=== PATIENT | female | born 1990 | race Caucasian/White ===

== ENCOUNTER 2019-04-03 09:50 | Day surgery (SDC) | payer OTHER ==
[2019-03-29 14:42] LABS: Absolute Lymphocytes (CBC) 2.2 K/uL (0.7-4.9); Absolute Monocytes 0.6 K/uL (0.1-1.3); Absolute Neutrophil 4.2 K/uL (1.8-8.0); Basophils % 0.8 % (0-1.3); Eosinophils % 1.2 % (0-4.4); Hematocrit 44.2 % (36.0-45.0); Lymphocytes % 30.2 % (15.3-44.8); MPV 8.9 fL (7.6-11.3); Monocytes % 8.7 % (3.3-12.3); RBC Red Blood Cell Count 4.88 M/uL (3.86-4.86)
[2019-04-03] MEDS ORDERED: Ringers Lactate 1,000 ML IV ONE (10:28)
[2019-04-03] MEDS ORDERED: CEFOXITIN/SWI 1gm 0 GM/0 ML SYR ONE (10:28)
[2019-04-03] MEDS: BUPIVACAINE 0.5% PF 10 ML VIAL ONE ×2 (10:28→11:32)
[2019-04-03] MEDS ORDERED: CEFOXITIN/SWI 1gm 1 GM/10 ML SYR ONE (10:35)
[2019-04-03] MEDS ORDERED: FENTANYL CITR 100 MCG/2 ML ONE ×2 (10:46→11:53)
[2019-04-03] MEDS ORDERED: PROPOFOL 200 MG/20 ML VIAL IV ONE (10:47)
[2019-04-03] MEDS ORDERED: ONDANSETRON 4 MG/2 ML VIAL ONE (10:48)
[2019-04-03] MEDS ORDERED: MIDAZOLAM HCL 2 MG/2 ML INJ ONE (10:48)
[2019-04-03] MEDS ORDERED: LIDOCAINE 2% MPF 5 ML VIAL ONE (10:48)
[2019-04-03] MEDS ORDERED: ROCURONIUM 50 MG/5 ML VIAL IV ONE (10:49)
[2019-04-03] MEDS ORDERED: DEXAMETHASONE 10 MG/ML VIAL ONE (11:41)
[2019-04-03] MEDS ORDERED: NEOSTIGMINE 1 MG/ML -10 ML VIAL ONE (12:02)
[2019-04-03] MEDS ORDERED: GLYCOPYRROLATE 0.2 MG/ML SYR ONE (12:02)
[2019-04-03] MEDS ORDERED: KETOROLAC 30 MG/ML INJ ONE (12:03)
[2019-04-03] MEDS: HYDROMORPHONE HCL 1 MG/ML INJ ONE ×6 (12:12→12:42)
[2019-04-03] MEDS ORDERED: PROMETHAZINE 25 MG/ML VIAL ONE (13:17)
[2019-04-03] MEDS ORDERED: HYDROCODONE/APAP 7.5/325 MG TAB ONE (13:54)
--- NOTE | 2019-04-03 21:01 | OP ---
Date of Procedure: 04/03/2019 Surgeon: Jacques Power MD Bracelet Form Coverer: LIMA Silveira. Preoperative Diagnoses: Chronic cholecystitis and biliary dyskinesia. Postoperative Diagnoses: Chronic cholecystitis and biliary dyskinesia. Procedure: Laparoscopic cholecystectomy. Estimated Blood Loss: Minimal. Findings: Chronic cholecystitis. Anesthesia: General. Complications: None. Disposition: The patient tolerated the procedure in stable condition and taken to Recovery in good g eneral condition. Procedure In Detail: The patient was brought to the OR and placed in supine position. General anest hesia was begun. The patient was prepped and draped in usual sterile fashion. Marcaine 0.5% was inf iltrated locally. A 15-blade was used to make a 1-cm infraumbilical midline incision. Subcutaneous tissue was divided. Fascia was identified and divided. A #1 Vicryl stay suture was placed. Periton eal cavity was entered with blunt dissection. A 12 mm trocar was placed into the peritoneal cavity u nder direct vision. Pneumoperitoneum was established, and then three 5 mm trocars placed, 1 in the e pigastrium just to the right of midline, and 2 in the right subcostal region. Laparoscopy revealed c hronic inflammation of the gallbladder. Fundus retracted superiorly. Infundibulum was identified an d retracted inferolaterally. Cystic duct and cystic artery were clearly identified with blunt dissec tion. Clips placed. Both structures divided. Cautery was used to remove the gallbladder from the l iver bed. Bleeding on the liver bed was controlled with cautery. The gallbladder was retrieved thro ugh the umbilicus via an EndoCatch bag. The right upper quadrant was irrigated. Effluent was clear. No evidence of bleeding or bile leakage appreciated. Subsequently, all trocars were removed under direct vision. Stay sutures were tied to each other to approximate the fascial defect. Subcutaneous wounds irrigated. Bleeding controlled with cautery. A 3-0 chromic used to reapproximate subcutaneo us tissue and close the skin. Sterile dressing was applied. The patient was awakened and taken to R ecovery in good general condition. /MODL Voice ID: [id number] Report ID: [id number]
--- NOTE | 2019-04-03 21:01 | DS ---
Date of Discharge: 04/03/2019 The patient will go to Day Surgery and home when stable. Disposition: Home. Condition: Stable. Discharge Instructions: Resume home medications and diet. Activity as tolerated. No heavy lifting. Remove outer dressing in 2 days. Shower, keep wound clean and dry. Keep Steri-Strips on at all ti mes. Follow up in my office in 1 week. Call for appointment. Tylenol No. 3 one tablet p.o. q.4 p.r .n. pain. /MODL Voice ID: [id number] Report ID: [id number]
== END 2019-04-03 14:44 | disposition home or self-care (01) ==
LOC: OR 09:50
PROVIDERS: ATTEND Surgery
PROC: 0FT44ZZ Resection of Gallbladder, Percutaneous Endoscopic Approach (ICD-10-PCS; principal; 2019-04-03 12:00)
DX: K81.1 Chronic cholecystitis (principal)
CPT/HCPCS: 36415; 81025; 85025; 88304; J1100; J1170; J2250; J2405; J2550; J2704; J2710; J3010

== ENCOUNTER 2020-12-15 14:28 | Emergency (ER) | payer OTHER ==
[2020-12-15] MEDS ORDERED: MORPHINE 4 MG/ML SYR ONE (17:50)
[2020-12-15] MEDS ORDERED: ONDANSETRON 4 MG/2 ML VIAL ONE (17:50)
[2020-12-15] MEDS ORDERED: NA CHLORIDE 0.9% 1,000 ML ONE ×2 (17:51→19:05)
[2020-12-15 18:02] LABS: Absolute Lymphocytes (CBC) 1.5 K/uL (0.7-4.9); Basophils % 0.4 % (0-1.3); Hematocrit 45.6 % (36.0-45.0); Lymphocytes % 10.4 % (15.3-44.8); MPV 8.8 fL (7.6-11.3); RBC Red Blood Cell Count 4.33 M/uL (3.86-4.86)
[2020-12-15 18:16] LABS: Albumin 4.2 g/dL (3.4-5.0); Bilirubin Direct 0.4 mg/dL (0-0.2); Bilirubin Total 1.3 mg/dL (0.2-1.0); Potassium 3.1 mmol/L (3.5-5.1); Protein, Total 8.2 g/dL (6.4-8.2)
[2020-12-15 18:34] LABS: Urine Blood NEGATIVE (NEG); Urine Glucose NEGATIVE (NEG); Urine Protein 2+ (NEG); Urine Specific Gravity >1.030 (1.005-1.030); Urine pH 5.5 (5.0-7.0)
[2020-12-15] MEDS ORDERED: POTASSIUM 25 MEQ EFFERV TAB ONE (19:24)
--- NOTE | 2020-12-15 19:30 | RAD REPORT ---
EXAM DESCRIPTION: CT - Abdomen Pelvis W Contrast - 12/15/2020 7:01 pm CLINICAL HISTORY: ABD PAIN COMPARISON: No comparisons TECHNIQUE: Biphasic, helical CT imaging of the abdomen and pelvis was performed following 100 ml non -ionic IV contrast. Oral contrast was given. All CT scans are performed using dose optimization technique as appropriate and may include automated exposure control or mA/KV adjustment according to patient size. FINDINGS: No suspicious findings in the lung bases. The liver, spleen, and pancreas show no suspicious focal findings. Liver attenuation shows mild fatty infiltration. Cholecystectomy clips are present with no biliary tree dilatation. Symmetric renal function is seen with no hydronephrosis or suspicious renal mass. No pyelonephritis o r acute parenchymal process. No bladder abnormalities. No adrenal abnormalities. Uterus and ovaries s how no suspicious findings. No dilated bowel loops or bowel wall thickening. Appendix is normal. No active GI process identifiabl e. No free air, free fluid or inflammatory stranding. No hernia, mass or bulky lymphadenopathy. No suspicious bony findings. IMPRESSION: Contrast enhanced CT abdomen and pelvis showing no acute or emergent finding.
[2020-12-15 20:34] LABS: White Blood Cell Scan OK (OK)
[2020-12-15 20:35] LABS: Blood Morphology Comment NOTED (NOT SEEN); Macrocytosis 1+; Platelet Estimate ADEQ
[2020-12-15 20:56] LABS: SARS-COV-2 RT PCR NEGATIVE (NEGATIVE)
--- NOTE | 2020-12-15 20:57 | EDPHYS ---
Physician Documentation [facility] – [place], [place] Name: Isa Verdin Age: 30 yrs Sex: Female : 1990 Arrival Date: 12/15/2020 Time: 14:32 Bed 19 Private MD: ED Physician Christos Rodriguez HPI: 12/15 18:08 This 30 yrs old Female presents to ER via Ambulatory with complaints of pm1 Crohns flare up. 18:08 The patient presents with abdominal pain right lower quadrant. Onset: The pm1 symptoms/episode began/occurred 3 day(s) ago. The symptoms do not radiate. Associated signs and symptoms: Pertinent positives: nausea, vomiting, and diarrhea. The symptoms are described as crampy. Modifying factors: The symptoms are alleviated by nothing, the symptoms are aggravated by nothing. Severity of pain: in the emergency department the pain is actually worse. The patient has experienced similar episodes in the past, multiple times, and the symptoms today are exactly the same, to previous Crohn's flare up. The patient has not recently seen a physician. Historical: - Allergies: 14:42 No Known Allergies; tw2 - Home Meds: 14:42 Pentasa 500 mg Oral cpER 2 caps 4 times per day [Active]; omeprazole 40 mg Oral cpDR 1 tw2 cap once daily [Active]; colestipol 1 gram oral tab 1 tab 2 times per day [Active]; promethazine 25 mg Oral tab 1 tab once daily [Active]; - PMHx: 14:42 Crohn's; tw2 - PSHx: 14:42 Cholecystectomy; tw2 - Immunization history:: Adult Immunizations. - Social history:: Smoking status: Patient denies any tobacco usage or history of. Patient uses street drugs, marijuana, "last night because the pain was so bad". ROS: 18:08 Constitutional: Negative for fever, chills, and weight loss, Neck: Negative for injury, pm1 pain, and swelling, Cardiovascular: Negative for chest pain, palpitations, and edema, Respiratory: Negative for shortness of breath, cough, wheezing, and pleuritic chest pain. 18:08 Back: Negative for injury and pain, : Negative for injury, bleeding, discharge, and swelling, MS/Extremity: Negative for injury and deformity, Skin: Negative for injury, rash, and discoloration, Neuro: Negative for headache, weakness, numbness, tingling, and seizure. 18:08 Abdomen/GI: Positive for abdominal pain, nausea, vomiting, and diarrhea, Negative for constipation. Exam: 18:08 Constitutional: This is a well developed, well nourished patient who is awake, alert, pm1 and in no acute distress. Head/Face: Normocephalic, atraumatic. 18:08 Back: No spinal tenderness. No costovertebral tenderness. Full range of motion. Skin: Warm, dry with normal turgor. Normal color with no rashes, no lesions, and no evidence of cellulitis. MS/ Extremity: Pulses equal, no cyanosis. Neurovascular intact. Full, normal range of motion. 18:08 Cardiovascular: Rate: tachycardic, actual rate is 109 bpm, Rhythm: regular, Pulses: no pulse deficits are appreciated, Edema: is not appreciated. 18:08 Abdomen/GI: Inspection: obese Palpation: soft, in all quadrants, mild abdominal tenderness, in the right lower quadrant. 18:08 Neuro: Exam negative for acute changes, Orientation: is normal, Mentation: is normal, Motor: is normal, moves all fours. Vital Signs: 14:38 BP 148 / 95; Pulse 144; Resp 19; Temp 98.3(TE); Pulse Ox 99% on R/A; Weight 65.77 kg tw2 (R); Height 4 ft. 11 in. (149.86 cm); Pain 7/10; 14:53 Pulse 126; tw2 17:29 BP 140 / 97; Pulse 103; Resp 18; Pulse Ox 99% on R/A; vg1 18:00 BP 116 / 59; Pulse 67; Resp 16; Pulse Ox 100% on R/A; vg1 19:00 BP 136 / 86; Pulse 108; Resp 16; Pulse Ox 100% on R/A; vg1 20:00 BP 122 / 80; Pulse 90; Resp 16; Pulse Ox 98% on R/A; vg1 14:38 Body Mass Index 29.29 (65.77 kg, 149.86 cm) tw2 MDM: 17:37 Patient medically screened. pm1 19:34 Data reviewed: vital signs. pm1 20:56 Counseling: I had a detailed discussion with the patient and/or guardian regarding: the pm1 historical points, exam findings, and any diagnostic results supporting the discharge/admit diagnosis, lab results, radiology results, the need for outpatient follow up, to return to the emergency department if symptoms worsen or persist or if there are any questions or concerns that arise at home. 12/15 17:22 Order name: Basic Metabolic Panel; Complete Time: 18:21 pm1 12/15 17:22 Order name: CBC with Diff; Complete Time: 20:47 pm1 12/15 17:22 Order name: Hepatic Function; Complete Time: 18:21 pm1 12/15 17:22 Order name: Lipase; Complete Time: 18:21 pm1 12/15 18:07 Order name: Urine Dipstick--Ancillary (enter results); Complete Time: 18:38 bd 12/15 18:07 Order name: Urine --Ancillary (enter results); Complete Time: 18:38 bd 12/15 17:38 Order name: CT Abd/Pelvis - IV Contrast Only; Complete Time: 19:34 pm1 12/15 20:33 Order name: CBC Smear Scan; Complete Time: 20:47 EDMS 12/15 20:56 Order name: COVID-19/FLU A+B; Complete Time: 21:02 EDMS 12/15 17:22 Order name: IV Saline Lock; Complete Time: 17:54 pm1 12/15 17:22 Order name: Labs collected and sent; Complete Time: 17:54 pm1 12/15 17:38 Order name: Urine Dipstick-Ancillary (obtain specimen); Complete Time: 18:00 pm1 12/15 17:38 Order name: Urine Test (obtain specimen); Complete Time: 17:59 pm1 Administered Medications: 17:53 Drug: Zofran (Ondansetron) 4 mg Route: IVP; Site: left antecubital; vg1 18:55 Follow up: Response: Nausea is decreased vg1 17:53 Drug: NS 0.9% 1000 ml Route: IV; Rate: 1000 ml; Site: left antecubital; vg1 18:47 Follow up: IV Status: Completed infusion; IV Intake: 1000ml vg1 17:54 Drug: morphine 4 mg {Note: rass0.} Route: IVP; Site: left antecubital; vg1 18:54 Follow up: Response: No adverse reaction; Pain is decreased vg1 18:54 Drug: NS 0.9% 1000 ml Route: IV; Rate: 1000 ml; Site: left antecubital; vg1 20:41 Follow up: IV Status: Completed infusion; IV Intake: 1000ml vg1 19:16 Drug: Potassium Effervescent Tablet 50 mEq Route: PO; vg1 20:41 Follow up: Response: No adverse reaction vg1 Disposition: 12/15/20 20:56 Discharged to Home. Impression: Unspecified abdominal pain, Vomiting, Diarrhea, unspecified. - Condition is Stable. - Discharge Instructions: Abdominal Pain, Adult, Crohn Disease, Diarrhea, Adult, Nausea and Vomiting, Adult. - Prescriptions for Zofran ODT 4 mg Oral tablet,disintegrating - place 1 tablet by TRANSLINGUAL route every 8 hours As needed; 12 tablet. Bentyl 20 mg Oral Tablet - take 1 tablet by ORAL route every 6 hours As needed; 20 tablet. Tylenol- Codeine #3 300-30 mg Oral Tablet - take 2 tablets by ORAL route every 6 hours As needed; 20 tablet. - Medication Reconciliation Form, Thank You Letter, Antibiotic Education, Prescription Opioid Use form. - Follow up: Emergency Department; When: As needed; Reason: Worsening of condition. Follow up: Private Physician; When: 2 - 3 days; Reason: Recheck today's complaints, Continuance of care, Re-evaluation by your physician. - Problem is new. - Symptoms have improved. Addendum: 12/17/2020 23:11 Co-signature as Attending Physician, Christos Rodriguez MD. r n Signatures: Dispatcher [employer] EDGA Christos Rodriguez MD MD rn Marinas, Patrick, CONRADO STONE DRESSER pm1 Aleksandra Hooper RN RN tw2 Renee Wills RN RN vg1 Corrections: (The following items were deleted from the chart) 12/15 19:54 19:39 Influenza Screen (A \\T\\ B)+BA.LAB.BRZ ordered. EDMS EDMS 19:58 19:39 CORONAVIRUS+MR.LAB.BRZ ordered. EDGA EDMS 21:00 20:56 12/15/2020 20:56 Discharged to Home. Impression: Unspecified abdominal pain. pm1 Condition is Stable. Forms are Medication Reconciliation Form, Thank You Letter, Antibiotic Education, Prescription Opioid Use. Follow up: Emergency Department; When: As needed; Reason: Worsening of condition. Follow up: Private Physician; When: 2 - 3 days; Reason: Recheck today's complaints, Continuance of care, Re-evaluation by your physician. Problem is new. Symptoms have improved. pm1 21:14 21:00 12/15/2020 20:56 Discharged to Home. Impression: Unspecified abdominal pain; vg1 Vomiting; Diarrhea, unspecified. Condition is Stable. Discharge Instructions: Abdominal Pain, Adult, Crohn Disease, Diarrhea, Adult, Nausea and Vomiting, Adult. Prescriptions for Zofran ODT 4 mg Oral tablet,disintegrating - place 1 tablet by TRANSLINGUAL route every 8 hours As needed; 12 tablet, Bentyl 20 mg Oral Tablet - take 1 tablet by ORAL route every 6 hours As needed; 20 tablet, Tylenol-Codeine #3 300-30 mg Oral Tablet - take 2 tablets by ORAL route every 6 hours As needed; 20 tablet. and Forms are Medication Reconciliation Form, Thank You Letter, Antibiotic Education, Prescription Opioid Use. Follow up: Emergency Department; When: As needed; Reason: Worsening of condition. Follow up: Private Physician; When: 2 - 3 days; Reason: Recheck today's complaints, Continuance of care, Re-evaluation by your physician. Problem is new. Symptoms have improved. pm1
--- NOTE | 2020-12-15 20:57 | ER ---
Nurse's Notes [facility] Name: Isa Verdin Age: 30 yrs Sex: Female : 1990 Arrival Date: 12/15/2020 Time: 14:32 Bed 19 Private MD: Diagnosis: Unspecified abdominal pain;Vomiting;Diarrhea, unspecified Presentation: 12/15 14:38 Chief complaint: Patient states: i am having severe cramping in my stomach, i know i tw2 have crohns and this last week it has been pretty bad, i have been cramping really severe and vomiting, i have vomited like 12 times today, mostly bile, i cant keep anything down,+n/v/d. Coronavirus screen: diarrhea, nausea, vomiting. Client presents with at least one sign or symptom that may indicate coronavirus-19. Standard/surgical mask placed on the client. Provider contacted for isolation considerations. Ebola Screen: Patient denies travel to an Ebola-affected area in the 21 days before illness onset. Initial Sepsis Screen: Does the patient meet any 2 criteria? HR > 90 bpm. Does the patient have a suspected source of infection? No. Patient's initial sepsis screen is negative. Risk Assessment: Do you want to hurt yourself or someone else? Patient reports no desire to harm self or others. Onset of symptoms was December 15, 2020. 14:38 Method Of Arrival: Ambulatory tw2 14:38 Acuity: SHARON 2 tw2 Triage Assessment: 14:42 General: Appears in no apparent distress. uncomfortable, Behavior is anxious. Pain: tw2 Complains of pain in abdomen. GI: Reports lower abdominal pain, upper abdominal pain, diarrhea, nausea, vomiting. Historical: - Allergies: 14:42 No Known Allergies; tw2 - Home Meds: 14:42 Pentasa 500 mg Oral cpER 2 caps 4 times per day [Active]; omeprazole 40 mg Oral cpDR 1 tw2 cap once daily [Active]; colestipol 1 gram oral tab 1 tab 2 times per day [Active]; promethazine 25 mg Oral tab 1 tab once daily [Active]; - PMHx: 14:42 Crohn's; tw2 - PSHx: 14:42 Cholecystectomy; tw2 - Immunization history:: Adult Immunizations. - Social history:: Smoking status: Patient denies any tobacco usage or history of. Patient uses street drugs, marijuana, "last night because the pain was so bad". Screenin:22 Abuse screen: Denies threats or abuse. Nutritional screening: No deficits noted. tw2 Tuberculosis screening: No symptoms or risk factors identified. Fall Risk None identified. Assessment: 17:20 General: Appears comfortable, uncomfortable, Behavior is calm, cooperative. Pain: vg1 Complains of pain in right upper quadrant and right lower quadrant Pain currently is 7 out of 10 on a pain scale. Quality of pain is described as crampy, Alleviated by nothing. Noted to be guarding. Neuro: Level of Consciousness is awake, alert, obeys commands, Oriented to person, place, time, situation. Cardiovascular: Patient's skin is warm and dry. Respiratory: Airway is patent Respiratory effort is even, unlabored, Respiratory pattern is regular, symmetrical. GI: Bowel sounds present X 4 quads. Abd is soft X 4 quads Abdomen is tender to palpation in right upper quadrant and right lower quadrant Reports diarrhea, nausea, vomiting. : No signs and/or symptoms were reported regarding the genitourinary system. EENT: No signs and/or symptoms were reported regarding the EENT system. Derm: Skin is intact, is healthy with good turgor. Musculoskeletal: Circulation, motion, and sensation intact. 18:55 Reassessment: Patient appears in no apparent distress at this time. Patient and/or vg1 family updated on plan of care and expected duration. Pain level reassessed. Patient is alert, oriented x 3, equal unlabored respirations, skin warm/dry/pink. Rated pain 3/10. Patient states feeling better. 19:05 Reassessment: Received VO from [facility] to administer Potassium tablet 50 mEq PO x1. vg1 20:43 Reassessment: Patient appears in no apparent distress at this time. Patient and/or vg1 family updated on plan of care and expected duration. Pain level reassessed. Patient is alert, oriented x 3, equal unlabored respirations, skin warm/dry/pink. Patient states feeling better. Vital Signs: 14:38 BP 148 / 95; Pulse 144; Resp 19; Temp 98.3(TE); Pulse Ox 99% on R/A; Weight 65.77 kg tw2 (R); Height 4 ft. 11 in. (149.86 cm); Pain 7/10; 14:53 Pulse 126; tw2 17:29 BP 140 / 97; Pulse 103; Resp 18; Pulse Ox 99% on R/A; vg1 18:00 BP 116 / 59; Pulse 67; Resp 16; Pulse Ox 100% on R/A; vg1 19:00 BP 136 / 86; Pulse 108; Resp 16; Pulse Ox 100% on R/A; vg1 20:00 BP 122 / 80; Pulse 90; Resp 16; Pulse Ox 98% on R/A; vg1 14:38 Body Mass Index 29.29 (65.77 kg, 149.86 cm) tw2 ED Course: 14:32 Patient arrived in ED. mr 14:40 Triage completed. tw2 14:43 Arm band placed on. tw2 17:15 Bed in low position. Call light in reach. Pulse ox on. NIBP on. tw2 17:17 Renee Wills, RN is Primary Nurse. vg1 17:21 Bar Arreaga NP is PHCP. pm1 17:21 Christos Rodriguez MD is Attending Physician. pm1 17:45 Inserted saline lock: 20 gauge in left antecubital area, using aseptic technique. Blood vg1 collected. 17:45 Initial lab(s) drawn, by ri, sent to lab. vg1 18:00 Urine collected: clean catch specimen, clear, jennifer colored. vg1 18:[address] via stretcher. vg1 19:07 CT Abd/Pelvis - IV Contrast Only In Process Unspecified. EDMS 19:45 COVID swab sent to lab. vg1 21:13 No provider procedures requiring assistance completed. IV discontinued, intact, vg1 bleeding controlled, No redness/swelling at site. Pressure dressing applied. Administered Medications: 17:53 Drug: Zofran (Ondansetron) 4 mg Route: IVP; Site: left antecubital; vg1 18:55 Follow up: Response: Nausea is decreased vg1 17:53 Drug: NS 0.9% 1000 ml Route: IV; Rate: 1000 ml; Site: left antecubital; vg1 18:47 Follow up: IV Status: Completed infusion; IV Intake: 1000ml vg1 17:54 Drug: morphine 4 mg {Note: rass0.} Route: IVP; Site: left antecubital; vg1 18:54 Follow up: Response: No adverse reaction; Pain is decreased vg1 18:54 Drug: NS 0.9% 1000 ml Route: IV; Rate: 1000 ml; Site: left antecubital; vg1 20:41 Follow up: IV Status: Completed infusion; IV Intake: 1000ml vg1 19:16 Drug: Potassium Effervescent Tablet 50 mEq Route: PO; vg1 20:41 Follow up: Response: No adverse reaction vg1 Intake: 18:47 IV: 1000ml; Total: 1000ml. vg1 20:41 IV: 1000ml; Total: 2000ml. vg1 Outcome: 20:56 Discharge ordered by . pm1 21:13 Discharged to home ambulatory. vg1 21:13 Condition: stable 21:13 Discharge instructions given to patient, Instructed on discharge instructions, follow up and referral plans. medication usage, Demonstrated understanding of instructions, follow-up care, medications, Prescriptions given X 3. 21:14 Patient left the ED. vg1 Signatures: Dispatcher [employer] Kerrie Patterson Patrick, CONRAD[employer] SUPERVISOR CEREAL pm1 Aleksandra Hooper RN RN tw2 Renee Wills RN RN vg1
[2020-12-15 21:18] VITALS: TEMP 98.3
[2020-12-15 21:28] VITALS: BP 122/80; O2SAT 98
== END 2020-12-15 21:14 | disposition home or self-care (01) ==
LOC: ER 14:28
DX: R19.7 Diarrhea, unspecified (principal); R10.31 Right lower quadrant pain; R11.2 Nausea with vomiting, unspecified; K50.90 Crohn's disease, unspecified, without complications; Z20.822 Contact with and (suspected) exposure to COVID-19
CPT/HCPCS: 96361; 85025; 80048; 36415; 81025; 80076; 81003; 83690; 0240U; 74177; 96375; 96374; 99284; Q9967; J7030 ×2; J2405

== ENCOUNTER 2022-01-20 09:07 | Emergency (ER) | payer OTHER ==
[2022-01-20] MEDS ORDERED: hydrOXYzine HCL 25 MG TAB ONE (09:50)
[2022-01-20] MEDS ORDERED: NA CHLORIDE 0.9% 1,000 ML ONE (09:50)
[2022-01-20 09:51] LABS: Absolute Lymphocytes (CBC) 0.9 K/uL (0.7-4.9); Hematocrit 39.9 % (36.0-45.0); MPV 8.2 fL (7.6-11.3); RBC Red Blood Cell Count 3.88 M/uL (3.86-4.86)
--- NOTE | 2022-01-20 10:00 | RAD REPORT ---
EXAM DESCRIPTION: RAD - Chest Single View - 01/20/2022 9:51 am CLINICAL HISTORY: PALPITATIONS COMPARISON: No comparisons FINDINGS: Lines: None. Lungs: No evidence of edema or pneumonia. Pleural: No significant pleural effusions or pneumothorax. Cardiac: The heart size is within normal limits. Bones: No acute fractures. Other: IMPRESSION: No acute cardiopulmonary disease.
[2022-01-20 10:19] LABS: ALT/SGPT 20 U/L (12-78); AST/SGOT 53 U/L (15-37); Albumin 3.7 g/dL (3.4-5.0); Alkaline Phosphatase 111 U/L (45-117); BUN Blood Urea Nitrogen 7 mg/dL (7-18); Bicarbonate 29 mmol/L (21-32); Bilirubin Direct 0.4 mg/dL (0-0.2); Bilirubin Total 1.4 mg/dL (0.2-1.0); Glucose Level 140 mg/dL (74-106); Protein, Total 7.4 g/dL (6.4-8.2); Sodium Level 135 mmol/L (136-145)
[2022-01-20 10:20] LABS: Magnesium 1.3 mg/dL (1.8-2.4); Potassium 2.8 mmol/L (3.5-5.1)
[2022-01-20] MEDS ORDERED: POTASSIUM 25 MEQ EFFERV TAB ONE (10:33)
[2022-01-20] MEDS ORDERED: MAGNESIUM SULFATE 1 gm IVPB 1 GM/100 ML BAG IV ONE (10:33)
[2022-01-20] MEDS ORDERED: KCL 20 MEQ/100 mL IVPB 100 ML IV ONE (10:33)
[2022-01-20] MEDS ORDERED: NA CHLORIDE 0.9% 250 ML ONE (10:33)
[2022-01-20] MEDS ORDERED: ONDANSETRON 4 MG/2 ML VIAL ONE (10:46)
[2022-01-20] MEDS ORDERED: DIAZEPAM 5 MG TABLET ONE (10:46)
[2022-01-20 12:25] LABS: SARS-COV-2 RT PCR NEGATIVE (NEGATIVE)
--- NOTE | 2022-01-20 13:12 | EDPHYS ---
Physician Documentation [facility] Name: Isa Verdin Age: 31 yrs Sex: Female : 1990 Arrival Date: 01/20/2022 Time: 09:09 Bed 6 Private MD: ED Physician Usha Akers HPI: 01/20 09:36 This 31 yrs old Female presents to ER via Ambulatory with complaints of Allergic pm1 Reaction, To meds. 09:36 The patient presents with chest pain, palpitations. Onset: The symptoms/episode pm1 began/occurred this morning. Associated signs and symptoms: Pertinent negatives: fever, shortness of breath, vomiting, diarrhea. Possible causes: new medication for anxiety, venlafaxine . At home the patient or guardian has treated the symptoms with nothing. Severity of symptoms: in the emergency department the symptoms are unchanged. The patient has experienced similar episodes in the past, a few times, with other antidepressants/anti-anxiety. 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 - Social history:: Smoking status: Patient denies any tobacco usage or history of. ROS: 09:36 Constitutional: Negative for fever, chills, and weight loss, Eyes: Negative for injury, pm1 pain, redness, and discharge, ENT: Negative for injury, pain, and discharge, Neck: Negative for injury, pain, and swelling. 09:36 Respiratory: Negative for shortness of breath, cough, wheezing, and pleuritic chest pain, Abdomen/GI: Negative for abdominal pain, nausea, vomiting, diarrhea, and constipation, Back: Negative for injury and pain, MS/Extremity: Negative for injury and deformity, Skin: Negative for injury, rash, and discoloration, Neuro: Negative for headache, weakness, numbness, tingling, and seizure. 09:36 Cardiovascular: Positive for chest pain, palpitations, Negative for edema. 09:36 Psych: Positive for anxiety, Negative for depression. 09:36 All other systems are negative. Exam: 09:36 Constitutional: This is a well developed, well nourished patient who is awake, alert, pm1 and in no acute distress. 09:36 Head/Face: Normocephalic, atraumatic. 09:36 Back: No spinal tenderness. No costovertebral tenderness. Full range of motion. Skin: Warm, dry with normal turgor. Normal color with no rashes, no lesions, and no evidence of cellulitis. MS/ Extremity: Pulses equal, no cyanosis. Neurovascular intact. Full, normal range of motion. 09:36 Cardiovascular: Exam negative for acute changes, Rate: tachycardic, Rhythm: regular, Pulses: no pulse deficits are appreciated, Heart sounds: normal, normal S1and S2, Edema: is not appreciated. 09:36 Respiratory: Exam negative for acute changes, respiratory distress, shortness of breath, Breath sounds: are clear throughout. 09:36 Neuro: Exam negative for acute changes, Orientation: is normal, Mentation: is normal, Motor: is normal, moves all fours. Vital Signs: 09:14 BP 149 / 107; Pulse 105; Resp 20 S; Temp 98.6(TE); Pulse Ox 95% on R/A; Weight 58.97 kg j9 (R); Height 4 ft. 11 in. (149.86 cm) (R); 09:59 BP 133 / 90; Pulse 96; Resp 15; Pulse Ox 100% ; Pain 0/10; jl7 11:42 BP 114 / 86; Pulse 96; Resp 15; Pulse Ox 100% ; jl7 12:28 BP 119 / 86; Pulse 116; Resp 24; Pulse Ox 100% on R/A; ld1 13:21 BP 112 / 86; Pulse 102; Resp 22; Pulse Ox 100% on R/A; ld1 09:14 Body Mass Index 26.26 (58.97 kg, 149.86 cm) 9 MDM: 09:27 Patient medically screened. pm1 12:04 Data reviewed: vital signs. Data interpreted: Pulse oximetry: on room air is 100 %. pm1 Interpretation: normal. 13:09 Counseling: I had a detailed discussion with the patient and/or guardian regarding: the pm1 historical points, exam findings, and any diagnostic results supporting the discharge/admit diagnosis, lab results, radiology results, the need for outpatient follow up, a family practitioner, a psychiatrist, to return to the emergency department if symptoms worsen or persist or if there are any questions or concerns that arise at home, Patient reports feeling better and is ready to go home. Educated on dietary from low magnesium and potassium levels. Suspect that palpitations is causing the patient's feelings of possible allergic reaction to her anxiety medications. 01/20 09:36 Order name: Basic Metabolic Panel; Complete Time: 10:23 pm1 01/20 09:36 Order name: CBC with Diff; Complete Time: 10:03 pm01/20 09:36 Order name: LFT's; Complete Time: 10:23 pm1 01/20 09:36 Order name: Magnesium; Complete Time: 10:23 pm1 01/20 09:36 Order name: Troponin HS; Complete Time: 10:23 pm01/20 09:36 Order name: TSH; Complete Time: 10:23 pm1 01/20 09:36 Order name: XRAY Chest (1 view); Complete Time: 10:03 pm1 01/20 11:31 Order name: COVID-19/FLU A+B (Document "Date of Onset" if Symptomatic); Complete Time: pm1 12:29 01/20 09:36 Order name: EKG; Complete Time: 09:36 pm1 01/20 09:36 Order name: Cardiac monitoring; Complete Time: 09:58 pm1 01/20 09:36 Order name: EKG - Nurse/Tech; Complete Time: 09:58 pm1 01/20 09:36 Order name: IV Saline Lock; Complete Time: 09:58 pm1 01/20 09:36 Order name: Labs collected and sent; Complete Time: 09:58 pm1 01/20 09:36 Order name: O2 Per Protocol; Complete Time: 09:58 pm1 01/20 09:36 Order name: O2 Sat Monitoring; Complete Time: 09:58 pm1 Administered Medications: 09:50 Drug: NS 0.9% 1000 ml Route: IV; Rate: 1000 ml; Site: right antecubital; jl7 09:50 Drug: hydrOXYzine 50 mg Route: PO; jl7 10:40 Follow up: Response: No adverse reaction; No change in condition jl7 10:40 Drug: Magnesium Sulfate 1 grams Route: IVPB; Infused Over: 1 hrs; Site: right jl7 antecubital; 10:40 Drug: Potassium Effervescent Tablet 50 mEq Route: PO; jl7 12:08 Follow up: Response: No adverse reaction jl7 10:40 Drug: Potassium Chloride 20 mEq Route: IV; Rate: calculated rate; Site: right jl7 antecubital; 10:50 Drug: Valium (diazepam) 2 mg Route: PO; jl7 11:30 Follow up: Response: No adverse reaction; Anxiety decreased jl7 10:50 Drug: Zofran (Ondansetron) 4 mg Route: IVP; Site: right antecubital; jl7 11:30 Follow up: Response: No adverse reaction; Nausea is decreased jl7 12:06 CANCELLED (Duplicate Order): Zofran (Ondansetron) 2 mg IVP once; over 2 minutes jl7 Disposition Summary: 01/20/22 13:12 Discharge Ordered Location: Home pm1 Problem: new pm1 Symptoms: have improved pm1 Condition: Stable pm1 Diagnosis - Hypomagnesemia pm1 - Hypokalemia pm1 Followup: pm1 - With: Emergency Department - When: As needed - Reason: Worsening of condition Followup: pm1 - With: Private Physician - When: 2 - 3 days - Reason: Recheck today's complaints, Continuance of care, Re-evaluation by your physician Discharge Instructions: - Discharge Summary Sheet pm1 - Potassium Content of Foods pm1 - Hypomagnesemia pm1 - Hypokalemia pm1 Forms: - Medication Reconciliation Form pm1 - Thank You Letter pm1 - Antibiotic Education pm1 - Prescription Opioid Use pm1 Signatures: Dispatcher [employer] EDBar Haynes NP COMPLAINT SUPERVISOR pm1 Sheldon Myers RN RN jl7 Emily Farr RN RN jg9 Corrections: (The following items were deleted from the chart) 12:06 12:05 Zofran (Ondansetron) 2 mg IVP once; over 2 minutes ordered. jl7 jl7
--- NOTE | 2022-01-20 13:12 | ER ---
Nurse's Notes [facility] Name: Isa Verdin Age: 31 yrs Sex: Female : 1990 Arrival Date: 01/20/2022 Time: 09:09 Bed 6 Private MD: Diagnosis: Hypomagnesemia;Hypokalemia Presentation: 01/20 09:14 Chief complaint: Patient states: I started a new anxiety depression medication called genie9 venlafaxine HCL, I was on amitriptyline but it made me sleep walk. My psychiatrist advised me to stop the amitriptyline and start the venlafaxine along with a sleeping pill called temazepam but I did not take the sleeping pill only the venlafaxine but it has not helped my anxiety it has made it worse, I don't feel right, I haven't been to sleep all night it made me sick with diarrhea and vomiting all night. Coronavirus screen: Vaccine status: Patient reports being unvaccinated. Ebola Screen: Patient negative for fever greater than or equal to 101.5 degrees Fahrenheit, and additional compatible Ebola Virus Disease symptoms Patient denies exposure to infectious person. Patient denies travel to an Ebola-affected area in the 21 days before illness onset. Onset: The symptoms/episode began/occurred. Initial Sepsis Screen: Does the patient meet any 2 criteria? No. Patient's initial sepsis screen is negative. Does the patient have a suspected source of infection? No. Patient's initial sepsis screen is negative. Risk Assessment: Do you want to hurt yourself or someone else? Patient reports no desire to harm self or others. 09:14 [place] [facility] [place] Acuity: SHARON 3 j9 09:20 Onset of symptoms was January 19, 2022. j9 Triage Assessment: 09:19 General: Appears uncomfortable, Behavior is anxious. Pain: Denies pain. 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 - Social history:: Smoking status: Patient denies any tobacco usage or history of. Screenin:19 Abuse screen: Denies threats or abuse. Denies injuries from another. Nutritional jg9 screening: No deficits noted. Tuberculosis screening: No symptoms or risk factors identified. Fall Risk None identified. Assessment: 09:59 General: Appears in no apparent distress. uncomfortable, Behavior is cooperative, jl7 appropriate for age, anxious. Pain: Denies pain. Neuro: Level of Consciousness is awake, alert, obeys commands, Oriented to person, place, time, situation. Cardiovascular: Patient's skin is warm and dry. Rhythm is sinus tachycardia. Respiratory: Airway is patent Respiratory effort is even, unlabored, Respiratory pattern is regular, symmetrical. Derm: Skin is pink, warm \T\ dry. 11:00 Reassessment: Patient appears in no apparent distress at this time. No changes from jl7 previously documented assessment. Patient and/or family updated on plan of care and expected duration. Pain level reassessed. Patient is alert, oriented x 3, equal unlabored respirations, skin warm/dry/pink. Vital Signs: 09:14 BP 149 / 107; Pulse 105; Resp 20 S; Temp 98.6(TE); Pulse Ox 95% on R/A; Weight 58.97 kg jg9 (R); Height 4 ft. 11 in. (149.86 cm) (R); 09:59 BP 133 / 90; Pulse 96; Resp 15; Pulse Ox 100% ; Pain 0/10; jl7 11:42 BP 114 / 86; Pulse 96; Resp 15; Pulse Ox 100% ; jl7 12:28 BP 119 / 86; Pulse 116; Resp 24; Pulse Ox 100% on R/A; ld1 13:21 BP 112 / 86; Pulse 102; Resp 22; Pulse Ox 100% on R/A; ld1 09:14 Body Mass Index 26.26 (58.97 kg, 149.86 cm) jg9 ED Course: 09:09 Patient arrived in ED. mr 09:18 Triage completed. jg9 09:19 Arm band placed on right wrist. jg9 09:20 Sheldon Myers RN is Primary Nurse. jl7 09:21 Bar Arreaga NP is PHCP. pm1 09:21 Usha Akers MD is Attending Physician. pm1 09:45 Initial lab(s) drawn, by me, sent to lab. Inserted saline lock: 20 gauge in right jl7 antecubital area, using aseptic technique. Blood collected. 09:51 XRAY Chest (1 view) In Process Unspecified. EDMS 09:59 Patient has correct armband on for positive identification. Bed in low position. Call 7 light in reach. Side rails up X 1. blanching machine operator on. Pulse ox on. NIBP on. 10:01 EKG done, by ED staff, reviewed by Bar Arreaga NP. jl7 11:42 COVID swab sent to lab. jl7 12:55 Primary Nurse role handed off by Sheldon Myers RN ld1 12:55 Melanie Corey, CAROL is Primary Nurse. ld1 13:21 No provider procedures requiring assistance completed. IV discontinued, intact, ld1 bleeding controlled, No redness/swelling at site. Administered Medications: 09:50 Drug: NS 0.9% 1000 ml Route: IV; Rate: 1000 ml; Site: right antecubital; jl7 09:50 Drug: hydrOXYzine 50 mg Route: PO; jl7 10:40 Follow up: Response: No adverse reaction; No change in condition jl7 10:40 Drug: Magnesium Sulfate 1 grams Route: IVPB; Infused Over: 1 hrs; Site: right jl7 antecubital; 10:40 Drug: Potassium Effervescent Tablet 50 mEq Route: PO; jl7 12:08 Follow up: Response: No adverse reaction jl7 10:40 Drug: Potassium Chloride 20 mEq Route: IV; Rate: calculated rate; Site: right jl7 antecubital; 10:50 Drug: Valium (diazepam) 2 mg Route: PO; jl7 11:30 Follow up: Response: No adverse reaction; Anxiety decreased jl7 10:50 Drug: Zofran (Ondansetron) 4 mg Route: IVP; Site: right antecubital; jl7 11:30 Follow up: Response: No adverse reaction; Nausea is decreased jl7 12:06 CANCELLED (Duplicate Order): Zofran (Ondansetron) 2 mg IVP once; over 2 minutes jl7 Outcome: 13:12 Discharge ordered by MD. pm1 13:21 Discharged to home ambulatory. ld1 13:21 Condition: stable 13:21 Discharge instructions given to patient, Instructed on discharge instructions, follow up and referral plans. Demonstrated understanding of instructions, follow-up care. 13:21 Patient left the ED. ld1 Signatures: Dispatcher [employer] Kerrie Patterson GibsonBar NP IT ACCOUNT MANAGER pm1 Sheldon Myers, RN RN jl7 Melanie Corey RN RN ld1 Emily Farr RN RN jg9
[2022-01-20 13:27] VITALS: TEMP 98.6
[2022-01-20 13:28] VITALS: O2SAT 100
[2022-01-20 13:32] VITALS: BP 112/86
== END 2022-01-20 13:21 | disposition home or self-care (01) ==
LOC: ER 09:07
DX: E87.6 Hypokalemia (principal); E83.42 Hypomagnesemia; F41.9 Anxiety disorder, unspecified; Z20.822 Contact with and (suspected) exposure to COVID-19
CPT/HCPCS: 93005; 85025; 80048; 36415; 83735; 80076; 84443; 84484; 0240U; 71045; 96375; 96374; 99284; J3480; J3475; J7050; J7030; J2405